=== PATIENT | female | born 1980 | race Caucasian/White ===

== ENCOUNTER → 2017-03-05 | Outpatient (CLI) | payer OTHER ==
[~2017-03-05] MED LIST: ACETAMINOPHEN500 M7 PO; ADVIL200 M1 DOB; ALEVE220 M1 PO; COLACE PO; COUMADIN5 MG PO; HYDROCODON-ACE1 EAC5 PO; IBUPROFEN800 MG PO; MULTI VITAMIN1 EACH PO; ZOFRAN PO
[2017-03-05 09:16] LABS: URINE APPEARANCE CLEAR; URINE BILIRUBIN NEG (NEG); URINE BLOOD NEG (NEG); URINE COLOR YELLOW; URINE GLUCOSE NEG (NEG); URINE KETONE NEG (NEG); URINE LEUKOCYTE ESTERASE NEG (NEG); URINE NITRATE NEG (NEG); URINE PROTEIN NEG (NEG); URINE SPECIFIC GRAVITY 1.023 (1.003-1.035); URINE UROBILINOGEN 0.2 MG/DL (NEG)
[2017-03-05 10:12] LABS: HEMATOCRIT 39.9 % (35.0-45.0); HEMOGLOBIN 13.3 gm/dL (12.0-16.0); MEAN CELL VOLUME 86.2 FL (83-96); MEAN CORPUSCULAR HEMOGLOBIN 28.7 PG (28-34); MEAN CORPUSCULAR HGB CONC 33.4 g/dL (30-36); MEAN PLATELET VOLUME 9.3 FL (6.5-11.5); RED BLOOD COUNT 4.63 X10e (3.90-5.30); RED CELL DISTRIBUTION WIDTH 12.9 % (11.0-15.5); WHITE BLOOD COUNT 4.5 X10e3 (4.0-10.5)
[2017-03-05 10:27] LABS: INR 0.9; PROTHROMBIN TIME (PATIENT) 9.6 SECONDS (9.6-11.5)
[2017-03-05 10:37] LABS: ALBUMIN SERUM 4.2 g/dL (3.5-5.0); BILIRUBIN,TOTAL 0.6 mg/dL (0.2-2.0); BUN/CREATININE RATIO 41.66; CALCIUM SERUM 9.6 mg/dL (8.4-10.2); CREATININE SERUM 0.6 mg/dL (0.6-1.4); GLOM FILT RATE Estimated 117.3 mL/min (>60); POTASSIUM 4.5 mmol/L (3.5-5.1); PROTEIN TOTAL SERUM 6.6 g/dL (6.0-8.3)
== END | disposition home or self-care (01) ==
LOC: CAMB 07:56
PROVIDERS: Orthopaedic Surgery
DX: Z01.812 Encounter for preprocedural laboratory examination (principal); T84.093A Other mechanical complication of internal left knee prosthesis, initial encounter; Z86.69 Personal history of other diseases of the nervous system and sense organs
CPT/HCPCS: 36415; 80053; 81003; 85027; 85610; 85652; 86140; 86850; 86900; 86901; 87070

== ENCOUNTER 2017-03-12 09:37 | Inpatient (IN) | payer OTHER, MEDICARE ==
--- NOTE | ~2017-03-12 | OR ---
Unit #: [id number] #: [id number] Patient: TUYET RICO [id number] [address] [place], [place] [address] [id number] MR#: [id number] NAME: TUYET RICO ROOM: 455 Date of Procedure: 03/12/2017 Admission Date: 03/12/2017 Surgeon: Prosper Renae M.D. : 1980 Attending Physician: Prosper Renae M.D. OPERATIVE REPORT PREOPERATIVE DIAGNOSIS Painful left total knee. POSTOPERATIVE DIAGNOSIS Painful left total knee. PROCEDURE PERFORMED Revision of left total knee. ESTIMATED About 700 mL. FINDINGS Loose tibial component. INDICATIONS FOR PROCEDURE This is a 36-year-old, who has had two left knee surgeries for avascular necrosis. Her tibial component was loose and she has an allergy to nickel, so she was brought to the hospital today for revision left total knee. DESCRIPTION OF PROCEDURE The patient was brought to the holding room, given 1 g of Kefzol. This will be continued postop, but discontinued within 23 hours the start time of surgery. The patient then had an adductor canal block performed. She is brought back to the operating room, given a general anesthetic. Tourniquet was placed around the left thigh. The left leg was prepped and draped in a sterile fashion. After this was done, the tourniquet was inflated to 250. The previous anterior skin incision was used. Subcu dissected away and a medial arthrotomy performed. Clear fluid was encountered. This was cultured. We then removed scar tissue from the suprapatellar pouch and the medial and lateral gutters. The patient had the polyethylene removed from the tibial tray. The femoral component was removed as well with very little bone loss. The tibial component was loose and this was extracted. Any cement in the proximal tibia was then removed. We then reamed the tibia with Patterson reamers up to a 12 and the tibia was sized at a 3. The patient then had boss reamer used for the proximal tibia. The trial tibia was positioned and no offset was needed. The femur was then reamed up to a 15 and then the patient had the femur sized at a 5. The box cut was made. The trial femur was applied in position. We found that the size 5 incised and 9 mm insert gave us appropriate stability and the knee now came to full extension. She had Unit #: [id number] #: [id number] Patient: TUYET RICO about a 20 degree flexion contracture preoperatively. We then injected the knee with ropivacaine mixture. The real components were opened. These were the Patterson components with Oxinium with no nickel. The patient then had the real components opened, and once the real components were cemented into place, we had plugged and prepped the canals both the femur and the tibia and the tibia and femur were cemented into place. The patellar component was well fixed in good position. The patient then had the trial inserts tried once the cement had hardened. We found that the 9 once again gave excellent stability. We used the constrained insert. This was from [employer]. The scar tissue was debrided. The tourniquet was released. Hemostasis was obtained. A drain positioned and then the lateral release was performed and then the patella tracked properly. We closed the wound using 0 Ethibond in the arthrotomy, 0 and 2-0 Vicryl in the subcutaneous, and harrison in the skin. reference assistant, Eber Harrell was present throughout the entire case. Dictated by... Shahla Rogers/devendra TD: 03/13/2017 00:43 JOB #: [id number] OPERATIVE REPORT Page 1 of 1 X Prosper Renae MD X PROCEDURE OPERATIVE NOTE
--- NOTE | ~2017-03-12 | DS ---
Unit #: [id number] #: [id number] Patient: TUYET RICO [id number] [facility]. [place], [place] [address] [id number] MR#: [id number] NAME: TUYET RICO ROOM: [facility] Age: 36 Sex: F Admission Date: 03/12/2017 : 1980 Discharge Date: 03/13/2017 Attending Physician: Prosper Renae M.D. Primary Care Physician: No Primary Care Physician DISCHARGE SUMMARY ADMITTING DIAGNOSIS Tibial loosening left total knee. HOSPITAL COURSE The patient was admitted to [facility] with a history of severe pain in her left knee and loosening of her tibia. The patient had undergone a revision of her left total knee replacement. The patient tolerated the procedure well. There were no complications. The patient, today, feels to be good and would like to plan on going home today. Her vital signs are stable. Her temperature is 98.1, blood pressure 98/50, heart rate 97 and regular, respirations 18. Her incision is healing well. Neurovascular exam is intact. She had 2+ pulses in her lower extremity. The patient will need a CPM on discharge for home. DISPOSITION Home with [facility]. PERTINENT LABS PT was 12.7, INR was 1.2, hemoglobin 10.3. MEDICATIONS Per Med Rec list. She will be on Coumadin. She will get 7.5 mg a day and then 6 mg daily. We will check PT/INR tomorrow morning. FOLLOWUP INSTRUCTIONS The patient will be discharged home today under [facility]. She will need PT/INRs done on 03/14, 03/15 and then every Sunday and thereafter. Call to the office at [phone] or fax to [phone]. The patient will need TEDs during the day and off at night. The patient should not shower until the day after harrison removed. The patient will begin physical therapy including active and active assist, range of motion and strengthening. Progressive ambulation, begin with a walker and progress to a cane as tolerated. Again, this patient will need a CPM machine to utilize twice a day for two hours. Will start range of motion at her last range of motion here in the hospital which will be hopefully 90 degrees. Dictated by... Eber Harrell P.A.-C- for Prosper Renae M.D. Unit #: [id number] #: [id number] Patient: TUYET RICO KF/df TD: 03/13/2017 08:41 JOB #: [id number] DISCHARGE SUMMARY Page 1 of 1 X X DISCHARGE SUMMARY
[~2017-03-12 09:37] MED LIST changes: -COLACE PO; -COUMADIN5 MG PO; -HYDROCODON-ACE1 EAC5 PO; -ZOFRAN PO
[2017-03-12 10:33] LABS: PROTHROMBIN TIME (PATIENT) 10.7 SECONDS (9.6-11.5)
[2017-03-13 03:05] LABS: HEMATOCRIT 30.9 % (35.0-45.0); HEMOGLOBIN 10.3 gm/dL (12.0-16.0)
[2017-03-13 03:18] LABS: INR 1.2; PROTHROMBIN TIME (PATIENT) 12.7 SECONDS (9.6-11.5)
[2017-03-13 03:33] LABS: BUN/CREATININE RATIO 26.66; CALCIUM SERUM 8.5 mg/dL (8.4-10.2); CREATININE SERUM 0.6 mg/dL (0.6-1.4); GLOM FILT RATE Estimated 117.3 mL/min (>60); MAGNESIUM 1.8 mg/dL (1.6-3.0); POTASSIUM 3.7 mmol/L (3.5-5.1)
[2017-03-13] MEDS ORDERED: HYDROCODON-ACE1 EAC5 PO (13:12)
[2017-03-13] MEDS ORDERED: COUMADIN5 MG PO (13:13)
[2017-03-13] MEDS ORDERED: COLACE PO (14:45)
[2017-03-13] MEDS ORDERED: ZOFRAN PO (14:45)
== END 2017-03-13 15:30 | disposition home health service (06) | DRG 468 ==
LOC: CSUR 09:37 → CPACUOF 10:37 → C4B 15:20
PROVIDERS: Nurse Practitioner; Orthopaedic Surgery
PROC: 0SPD09Z Removal of Liner from Left Knee Joint, Open Approach (ICD-10-PCS; 2017-03-12)
PROC: 0SPD0JZ Removal of Synthetic Substitute from Left Knee Joint, Open Approach (ICD-10-PCS; 2017-03-12)
PROC: 0SUW09Z Supplement Left Knee Joint, Tibial Surface with Liner, Open Approach (ICD-10-PCS; 2017-03-12)
PROC: 0SRD0J9 Replacement of Left Knee Joint with Synthetic Substitute, Cemented, Open Approach (ICD-10-PCS; principal; 2017-03-12 12:00)
DX: T84.033A Mechanical loosening of internal left knee prosthetic joint, initial encounter (principal); L29.9 Pruritus, unspecified; Z85.841 Personal history of malignant neoplasm of brain; M19.90 Unspecified osteoarthritis, unspecified site; Z96.641 Presence of right artificial hip joint; Z88.5 Allergy status to narcotic agent; Z88.8 Allergy status to other drugs, medicaments and biological substances; R11.0 Nausea
CPT/HCPCS: 80048; 83735; 84703; 85014; 85018; 85610; 87070; 87075; 87205; 94760; 97110; 97116; 97163; 97167; C1713; C1776; C9113; J0131; J0171; J0690; J0735; J1170; J1650; J1885; J2250; J2405; J2550; J2795; J3010